=== PATIENT | male | born 1960 | race Caucasian/White ===

== ENCOUNTER → 2024-01-23 09:08 | Outpatient (REF) | payer BC, SELFPAY ==
[2024-01-23 11:02] LABS: Microalbumin, Random Urine 4.2 mg/dl (0.6-1.7); Microalbumin/creatinine Ratio 32.2 mg/g
[2024-01-23 11:12] LABS: ALT (SGPT) 32 U/L (0-50); AST (SGOT) 37 U/L (17-59); Albumin 4.9 g/dl (3.5-5.0); Alkaline Phosphatase 87 U/L (38-126); Blood Urea Nitrogen 19 mg/dl (9-20); Calcium 10.2 mg/dl (8.4-10.2); Carbon Dioxide 28 mmol/L (22-30); Chloride 96 mmol/L (98-107); Glucose 188 mg/dl (70-99); HDL Cholesterol 41 mg/dl; Potassium 4.3 mmol/L (3.5-5.1); Sodium 135 mmol/L (135-145); Total Bilirubin 0.9 mg/dl (0.2-1.3); Total Cholesterol 204 mg/dl (50-199); Total Protein 7.9 g/dl (6.3-8.2); eGFR > 60.00
[2024-01-23 11:18] LABS: LDL Cholesterol, Calculated 65 mg/dl; Triglyceride 494 mg/dl (10-149); Very Low Density Lipoprotein 98 mg/dl (0-30)
[2024-01-23 11:43] LABS: LDL Cholesterol, Direct 88 mg/dl
[2024-01-23 12:37] LABS: Glycohemoglobin (HgbA1c) 9.4 % (4.0-5.6)
== END ==
LOC: REG 09:08
PROVIDERS: ATTENDING PHYSICIAN Family Medicine
DX: E11.59 Type 2 diabetes mellitus with other circulatory complications (principal); R11.0 Nausea; R53.83 Other fatigue; E66.01 Morbid (severe) obesity due to excess calories; I10 Essential (primary) hypertension; R80.9 Proteinuria, unspecified
CPT/HCPCS: 36415; 80053; 80061; 82043; 82570; 83036; 83721

== ENCOUNTER → 2024-07-26 09:27 | Outpatient (REF) | payer BC, SELFPAY ==
[2024-07-26 10:44] LABS: Blood Urea Nitrogen 16 mg/dl (9-20); Calcium 10.2 mg/dl (8.4-10.2); Carbon Dioxide 27 mmol/L (22-30); Chloride 102 mmol/L (98-107); Glucose 188 mg/dl (70-99); Sodium 144 mmol/L (135-145); eGFR > 60.00
[2024-07-26 13:13] LABS: Glycohemoglobin (HgbA1c) 7.9 % (4.0-5.6)
== END ==
LOC: REG 09:27
PROVIDERS: ATTENDING PHYSICIAN Physical Medicine & Rehabilitation; FAMILY PHYSICIAN Family Medicine
DX: E11.65 Type 2 diabetes mellitus with hyperglycemia (principal); E66.01 Morbid (severe) obesity due to excess calories; F32.1 Major depressive disorder, single episode, moderate; Z01.818 Encounter for other preprocedural examination
CPT/HCPCS: 36415; 80048; 83036; 93005

== ENCOUNTER 2024-08-30 17:09 | Emergency (ER) | payer BC, SELFPAY ==
[2024-08-30 17:18] VITALS: BP 130/62
[2024-08-30 17:19] VITALS: BP 130/62; BMI 34.9
--- NOTE | 2024-08-30 17:24 | ED.MUSCINJ ---
HPI-Injury
General
Chief Complaint: Fall
Source: patient
Exam Limitations: none
Time Seen by Provider: 08/30/24 17:15
Nursing documentation reviewed up to this point in time: agreed with
History of Present Illness-Injury
Is this injury a work related problem?: No
Is pt an associate of [facility]/[place]?: No
Initial Injury comments:
Patient states he was walking dog and dog pulled him over. States he hit his head on ground, +LOC. COmplains of headache, neck pain, ant chest pain, left upper arm pain. Injury occured just [employer]
Past History
Past History
ED Past Medical History: GERD, Hypercholesterolemia (Hypertriglyceridemia), NIDDM and Other (Migraine headaches); Negative CAD
ED Past Surgical History: None
Social History
Tobacco: Former smoker (Occasional smoker)
Alcohol: Occasional
Drug: None
Personal: Partner
Living: with family
Employment: Employed
Family History
Family History: Negative CAD
Review of Systems
Review of Systems
Allergies reviewed?: Yes
All Other Systems: ROS reviewed and negative except as documented in HPI and ROS
Constitutional: Reports no symptoms
EENT: Reports no symptoms
Respiratory: Reports no symptoms
Cardiac: Reports no symptoms
ABD/GI: Reports no symptoms
: Reports no symptoms
Musculoskeletal: Reports joint pain (pain to left upper arm, ant. chest wall pain)
Skin: Reports no symptoms
Neurological: Reports headache
Psychiatric: Reports no symptoms
Musculoskeletal Injury Exam
Musculoskeletal Injury Exam
Neck:
Pain with Movement?: Mild
Tender to palpation?: Mild
Soft tissue swelling?: None
External deformity and angulation?: None
Joint effusion?: None
Contusion?: None
Hematoma-local bleeding into tissue?: None
Strain- Sprain- Tear (Connective tissue injury)?: Moderate
Crepitus with movement?: No
Joint instability?: No
Malalignment/deformity?: No
Range of motion: Full
Distal skin color and temperature: normal-warm & good color
Normal distal neurovascular exam?: Yes
Left Upper Arm:
Pain with Movement?: Moderate
Tender to palpation?: Mild
Soft tissue swelling?: None
External deformity and angulation?: None
Joint effusion?: None
Contusion?: Moderate
Hematoma-local bleeding into tissue?: None
Strain- Sprain- Tear (Connective tissue injury)?: Moderate
Crepitus with movement?: No
Joint instability?: No
Malalignment/deformity?: No
Range of motion: Full
Distal skin color and temperature: normal-warm & good color
Capillary Refill: normal
Normal distal neurovascular exam?: Yes
Peripheral Pulses: radial (left): 3+
Anterior Chest:
Pain with Movement?: Moderate
Tender to palpation?: Mild
Soft tissue swelling?: None
External deformity and angulation?: None
Joint effusion?: None
Contusion?: Moderate
Strain- Sprain- Tear (Connective tissue injury)?: Moderate
Crepitus with movement?: No
Joint instability?: No
Malalignment/deformity?: No
Range of motion: Full
Distal skin color and temperature: normal-warm & good color
Capillary Refill: normal
Normal distal neurovascular exam?: Yes
Phy Exam
General Physical Exam
General Presentation: well appearing and no apparent distress
General age: appears stated age
General Skin: warm and dry
General Habitus: normal
General Mental: alert
Cardiovascular Exam
Cardiovascular Exam: regular rate/rhythm
Pulmonary Exam
Pulmonary Exam: no respiratory distress
Gastrointestinal Exam
Gastrointestinal Exam: non tender and soft
Neurological Exam
Neurological Exam: alert, oriented x3, CN II-XII intact, no motor deficits, no sensory deficits, speech normal and normal gait
Luda Coma Scale
Eye Opening: Spontaneous
Verbal Response: Oriented
Motor Response: Obeys Commands
GCS Total Score: 15
Musculoskeletal Exam
Musculoskeletal Exam: full ROM and neuro vasc intact
Skin Exam
Skin Exam: normal color, warm/dry and no rash
Psychiatric Exam
Psychiatric Exam: normal mood/affect
Injury Course
Orders/Labs/Results
Orders:
Orders
08/30/24 17:22
Cervical Spine wo Contrast CT [CT Cervical Spine W/o Iv Contr] Urgent
Comment:
Reason For Exam: fall, pain
Humerus, Left 2 Views [CR Humerus - Left Min 2 Views*] Urgent
Comment:
Reason For Exam: fall, pain
08/30/24 17:23
CT Head W/o Iv Contrast Urgent
Comment:
Reason For Exam: fall, LOC
Acetaminophen [Tylenol] 1,000 mg PO NOW STA
CR Chest - 2 Views Urgent
Comment:
Reason For Exam: fall,pain
08/30/24 17:25
Electrocardiogram (*1) Urgent
Reason for Study: Chest Pain
EKG- Treatment ONCE
*Radiology
Radiology exam reviewed: radiology read reviewed
*Pulse Oximetry
Patient hypoxic: no
*Critical Care Note
Total Time (30-74mins, 75-104mins- exclusive of procedures): Not Applicable
ED Attending Note
-
Portions of this chart may have been created with voice recognition software.� Occasional wrong word or��sound alike� substitutions may have occurred due to the inherent limitations of voice recognition software.
Discharge Plan
Departure
Patient Disposition: Home (Routine Discharge)
Date of Disposition: 08/30/24
Time of Disposition: 19:43
Patient with high blood pressure during this ER visit?: No
Condition: Good
Covid-19: Not Applicable
Discharge Problem:
Head injury, Chest wall contusion, Contusion of arm
Instructions: Head Injury in Adults (DC), Contusion (DC), Preventing falls in adults
Prescriptions:
No Action
lansoprazole [Prevacid] 30 MG capsule,delayed release(DR/EC)
30 mg PO DAILY
atorvastatin 20 mg tablet
20 mg PO DAILY
glipizide 10 mg tablet extended release 24hr
10 mg PO BID
metformin 1,000 mg tablet
1,000 mg PO BID
lisinopril 5 mg tablet
5 mg PO DAILY
sertraline 50 mg tablet
50 mg PO QPM
Coricidin HBP Cold and Flu 2-325 mg Tablet
1 tab PO DAILYPRN PRN (Reason: cold symptoms)
dapagliflozin propanediol [Farxiga] 10 mg tablet
10 mg PO QPM
Descovy 200-25 mg tablet
1 tab PO QPM
Referrals:
Devonte Colbert MD [Family Provider] - Follow up in 2-3 days
Interventions
Interventions:
*Risk Screen - Suicide Last Done: 08/30/24 17:50
*General Assessment Last Done: 08/30/24 18:28
*Neglect/Abuse Screening Last Done: 08/30/24 17:50
ED- Fall Risk Assessment Last Done: 08/30/24 17:50
*ED COVID-19 Vaccine History Last Done: 08/30/24 18:28
*Nursing Disposition Last Done: 08/30/24 20:30
ED-Musculoskeletal Assessment Last Done: 08/30/24 18:30
ED- Neurological Assessment Last Done: 08/30/24 17:50
ED-Skin Assessment Last Done: 08/30/24 18:30
Discharge Date and Time
Discharge Date/Time: 08/30/24 20:39
Print Language: [place]
[2024-08-30 18:00] VITALS: BP 132/74
[2024-08-30] MEDS: TYLENOL 1000 MG PO (18:18)
[2024-08-30 20:10] VITALS: BP 130/72
[2024-08-30 20:30] VITALS: BP 130/72
== END 2024-08-30 20:39 | disposition home or self-care (01) ==
LOC: EMR 17:09
PROVIDERS: EMERGENCY PHYSICIAN Emergency Medicine; FAMILY PHYSICIAN Family Medicine
DX: S09.90XA Unspecified injury of head, initial encounter (principal); S20.219A Contusion of unspecified front wall of thorax, initial encounter; S40.022A Contusion of left upper arm, initial encounter; W19.XXXA Unspecified fall, initial encounter; Y93.K1 Activity, walking an animal; E11.9 Type 2 diabetes mellitus without complications; K21.9 Gastro-esophageal reflux disease without esophagitis; E78.2 Mixed hyperlipidemia; Z87.891 Personal history of nicotine dependence
CPT/HCPCS: 99284; 70450; 71046; 72125; 73060; 93005

== ENCOUNTER → 2025-03-14 08:11 | Outpatient (REF) | payer BC, SELFPAY ==
[2025-03-14 08:57] LABS: % Basophils 0.6 % (0-2); % Eosinophils 1.1 % (0-6); % Immature Granulocytes 0.3 % (0-0.5); % Lymphocytes 35.6 % (20.5-51.1); % Monocytes 5.6 % (1.7-9.3); % Neutrophils 56.8 % (42.2-75.2); Absolute Eosinophils 0.1 10^3/uL (0-0.7); Absolute Lymphocytes 2.4 10^3/uL (1.2-3.4); Absolute Monocytes 0.4 10^3/uL (0.1-0.6); Absolute Neutrophils 3.8 10^3/uL (1.4-6.5); Hematocrit 44.1 % (39.0-52.0); Hemoglobin 15.1 g/dL (13.0-18.0); Mean Corp Hgb Conc. 34.2 g/dL (33.0-37.0); Mean Corpuscular Hgb 31.4 pg (27.0-31.0); Mean Corpuscular Volume 91.7 fL (80.0-94.0); Mean Platelet Volume 9.3 fL (7.4-10.4); Nucleated Red Blood Cells % 0 % (-); Platelet Count 203 10^3/uL (130-400); Red Blood Cell Count 4.81 10^6/uL (4.70-6.10); Red Cell Dist. Width 12.5 % (11.5-14.5); White Blood Cell Count 6.6 10^3/uL (4.8-10.8)
[2025-03-14 09:39] LABS: ALT (SGPT) 24 U/L (0-50); AST (SGOT) 20 U/L (17-59); Albumin 4.6 g/dl (3.5-5.0); Alkaline Phosphatase 71 U/L (38-126); Blood Urea Nitrogen 20 mg/dl (9-20); Calcium 9.9 mg/dl (8.4-10.2); Carbon Dioxide 22 mmol/L (22-30); Chloride 107 mmol/L (98-107); Glucose 212 mg/dl (70-99); HDL Cholesterol 40 mg/dl; Potassium 4.8 mmol/L (3.5-5.1); Sodium 142 mmol/L (135-145); Total Bilirubin 0.5 mg/dl (0.2-1.3); Total Cholesterol 219 mg/dl (50-199); Total Protein 7.8 g/dl (6.3-8.2); eGFR > 60.00
[2025-03-14 09:49] LABS: Glycohemoglobin (HgbA1c) 9.1 % (4.0-5.6)
[2025-03-14 10:08] LABS: Triglyceride 769 mg/dl (10-149)
[2025-03-14 10:50] LABS: LDL Cholesterol, Direct 53 mg/dl
== END ==
LOC: REG 08:11
PROVIDERS: ATTENDING PHYSICIAN Family Medicine
DX: E11.65 Type 2 diabetes mellitus with hyperglycemia (principal)
CPT/HCPCS: 36415; 80053; 80061; 83036; 83721; 85025

== ENCOUNTER → 2025-07-11 10:02 | Outpatient (REF) | payer BC, SELFPAY ==
[2025-07-11 11:38] LABS: Blood Urea Nitrogen 15 mg/dl (9-20); Calcium 9.9 mg/dl (8.4-10.2); Carbon Dioxide 27 mmol/L (22-30); Chloride 104 mmol/L (98-107); Glucose 91 mg/dl (70-99); HDL Cholesterol 40 mg/dl; LDL Cholesterol, Calculated 54 mg/dl; Potassium 4.6 mmol/L (3.5-5.1); Sodium 141 mmol/L (135-145); Very Low Density Lipoprotein 45 mg/dl (0-30); eGFR > 60.00
[2025-07-12 10:09] LABS: Glycohemoglobin (HgbA1c) 6.7 % (4.0-5.6)
== END ==
LOC: REG 10:02
PROVIDERS: FAMILY PHYSICIAN Family Medicine
DX: E11.65 Type 2 diabetes mellitus with hyperglycemia (principal)
CPT/HCPCS: 36415; 80048; 80061; 83036